=== PATIENT | male | born 1955 | race Caucasian/White ===

== ENCOUNTER 2017-03-04 12:28 | Outpatient (CLI) | payer BC ==
--- NOTE | 2017-03-04 15:05 | ULT ---
THYROID ULTRASOUND: History: Thyroid mass. Comparison: None. FINDINGS: Both lobes are homogeneous. Right lobe measures 5.1 x 1.7 x 1.7 cm. Left lobe measures 4.5 x 2.0 x 2 .0 cm. Small complex partially cystic nodule inferior left lobe near the isthmus is seen. This measures up to 1.0 cm. This lesion is a TIRADS 4. Follow up is recommended since this lesion is 1.5 cm. There are two tiny hypoechoic nodules in the right lobe, one measures 2 mm and the other measuring 3 mm. IMPRESSION: 1.0 cm complex partially cystic nodule inferior left lobe near the isthmus. Follow up is recommended . Recommend repeat thyroid ultrasound in six months. POS: LYNETTE
== END 2017-03-04 12:29 | disposition home or self-care (01) ==
LOC: SCSULT 12:28
PROVIDERS: ATTEND Specialist
DX: E04.1 Nontoxic single thyroid nodule (principal)
CPT/HCPCS: 76536

== ENCOUNTER 2017-09-09 14:06 | Outpatient (CLI) | payer BC ==
--- NOTE | 2017-09-09 16:11 | ULT ---
THYROID ULTRASOUND: Date: 09/09/17 COMPARISON: 03/04/17. HISTORY: Thyroid mass. Left thyroid nodule. TECHNIQUE: Sagittal and transverse imaging of the thyroid gland is performed. FINDINGS: Thyroid isthmus measures 0.8 cm. Right thyroid lobe measures 4.6 x 2.0 x 1.5 cm. Left thyroid lobe me asures 4.4 x 2.1 x 1.9 cm. There is mild heterogeneity throughout the thyroid gland. Hypoechoic nodule in the right thyroid lobe , adjacent to the isthmus, measuring 0.8 cm. Hypoechoic solid nodule in the lower pole of the right t hyroid lobe measuring 0.5 cm. Additional hypoechoic nodule in the inferior aspect of the isthmus mike uring 0.4 cm. There is a cyst in the lower pole of left thyroid lobe measuring 0.4 cm. There is a com plex lesion in the junction of the isthmus and left thyroid lobe measuring 0.8 x 1.1 x 1.2 cm. When c ompared to the prior examination, no appreciable change. Previously, this lesion also measured 1.1 x 0.7 x 1.0 cm. IMPRESSION: Essentially stable nodule in the left thyroid lobe. Follow-up ultrasound in March 2019 is recommen ded to document 2 years of stability. POS: MEGHAN
== END 2017-09-09 14:07 | disposition home or self-care (01) ==
LOC: SCSULT 14:06
PROVIDERS: ATTEND Specialist
DX: E04.1 Nontoxic single thyroid nodule (principal)
CPT/HCPCS: 76536